=== PATIENT | female | born 1955 | race Two or more races ===

== ENCOUNTER 2017-08-29 05:10 | Day surgery (SDC) | payer OTHER ==
[~2017-08-29 05:10] MED LIST: AMARIL; AMARYL PO; GABAPENTIN600 MG PO; JANUMET XR 50-1 EAC1 PO; LEVEMIR100 UNIT/1; MICARDIS HCT 81 EACH; SINGULAIR10 MG PO; SYNTHROID75 MCG PO; ZANTAC150 MG; ZOCOR40 MG; [UNRECOGNIZED DRUG - OTHER]; [UNRECOGNIZED DRUG - OTHER] PO
== END 2017-08-29 11:55 | disposition home or self-care (01) ==
LOC: CIR.AMB 05:10
DX: C50.412 Malignant neoplasm of upper-outer quadrant of left female breast (principal)

== ENCOUNTER 2017-12-31 09:16 | Outpatient (CLI) | payer OTHER | END 2017-12-31 09:25 | disposition home or self-care (01) | LOC: MAMO-SONO 09:16 | DX: C50.412 Malignant neoplasm of upper-outer quadrant of left female breast (principal) ==

== ENCOUNTER 2018-12-28 10:17 | Outpatient (CLI) | payer OTHER | END 2018-12-28 10:25 | disposition home or self-care (01) | LOC: SONOGRAMA → MAMO-SONO 10:17 → SONOGRAMA 11:15 | DX: N60.11 Diffuse cystic mastopathy of right breast (principal); N60.12 Diffuse cystic mastopathy of left breast; C50.412 Malignant neoplasm of upper-outer quadrant of left female breast ==

== ENCOUNTER 2019-01-05 14:50 | Outpatient (CLI) | payer OTHER | END 2019-01-05 14:53 | disposition home or self-care (01) | LOC: RAD 14:50 | DX: M54.5 Low back pain (principal); I10 Essential (primary) hypertension; C50.412 Malignant neoplasm of upper-outer quadrant of left female breast ==

== ENCOUNTER 2019-01-25 07:13 | Outpatient (CLI) | payer OTHER | END 2019-01-25 07:22 | disposition home or self-care (01) | LOC: NUCLEAR 07:13 | DX: M85.88 Other specified disorders of bone density and structure, other site (principal); C50.412 Malignant neoplasm of upper-outer quadrant of left female breast; I82.409 Acute embolism and thrombosis of unspecified deep veins of unspecified lower extremity; I87.2 Venous insufficiency (chronic) (peripheral) | CPT/HCPCS: 78306; 93971; A9503 ==

== ENCOUNTER 2019-01-26 09:56 | Outpatient (CLI) | payer OTHER | END 2019-01-26 10:11 | disposition home or self-care (01) | LOC: NUCLEAR 09:56 | DX: I82.409 Acute embolism and thrombosis of unspecified deep veins of unspecified lower extremity (principal); I73.9 Peripheral vascular disease, unspecified ==

== ENCOUNTER 2020-01-03 09:15 | Outpatient (CLI) | payer OTHER | END 2020-01-03 09:16 | disposition home or self-care (01) | LOC: MAMO-SONO 09:15 | PROVIDERS: ATTEND Surgery | DX: Z12.31 Encounter for screening mammogram for malignant neoplasm of breast (principal); Z87.898 Personal history of other specified conditions; C50.412 Malignant neoplasm of upper-outer quadrant of left female breast; N60.11 Diffuse cystic mastopathy of right breast; N60.12 Diffuse cystic mastopathy of left breast ==

== ENCOUNTER 2020-01-11 13:09 | Outpatient (CLI) | payer OTHER | END 2020-01-11 13:11 | disposition home or self-care (01) | LOC: NUCLEAR 13:09 | PROVIDERS: ATTEND Internal Medicine Endocrinology, Diabetes & Metabolism | DX: M85.89 Other specified disorders of bone density and structure, multiple sites (principal) ==

== ENCOUNTER → 2021-01-03 | Outpatient (CLI) | payer OTHER | END | disposition home or self-care (01) | LOC: MAMO-SONO 09:48 | PROVIDERS: ATTEND Surgery | DX: N60.11 Diffuse cystic mastopathy of right breast (principal); N60.12 Diffuse cystic mastopathy of left breast; C50.212 Malignant neoplasm of upper-inner quadrant of left female breast; Z12.31 Encounter for screening mammogram for malignant neoplasm of breast ==

== ENCOUNTER 2022-01-10 09:06 | Outpatient (CLI) | payer OTHER | END 2022-01-10 09:15 | disposition home or self-care (01) | LOC: MAMO-SONO 09:06 | PROVIDERS: ATTEND Surgery | DX: C50.412 Malignant neoplasm of upper-outer quadrant of left female breast (principal); N60.11 Diffuse cystic mastopathy of right breast; N60.12 Diffuse cystic mastopathy of left breast ==

== ENCOUNTER 2023-01-14 07:44 | Outpatient (CLI) | payer OTHER | END 2023-01-14 07:57 | disposition home or self-care (01) | LOC: MAMO-SONO 07:44 | PROVIDERS: ATTEND Surgery | DX: N60.11 Diffuse cystic mastopathy of right breast (principal); N60.12 Diffuse cystic mastopathy of left breast ==

== ENCOUNTER 2023-01-14 10:19 | Outpatient (CLI) | payer OTHER | END 2023-01-14 10:20 | disposition home or self-care (01) | LOC: NUCLEAR 10:19 | PROVIDERS: ATTEND Internal Medicine Endocrinology, Diabetes & Metabolism | DX: M85.80 Other specified disorders of bone density and structure, unspecified site (principal) ==